=== PATIENT | male | born 1970 | race African-American/Black ===

== ENCOUNTER 2018-07-11 17:36 | Inpatient (IN) | payer OTHER ==
[~2018-07-11] VITALS: Ht 172.7 cm; Wt 70.3 kg
[2018-07-11] MEDS: IPRATROPIUM/ALBUTEROL 0.5-3(2.5)MG/3ML NEB HHN SCH (04:35)
[2018-07-11] MEDS ORDERED: ALPR0.25 PO (17:39)
[2018-07-11] MEDS ORDERED: MORPHINE SULFATE 10 MG/ML CPJ IM ONE (18:00)
[2018-07-11 18:57] LABS: BASOPHILS % 0.2 % (0.0-2.0); EOSINOPHILS % 0.2 % (0.0-5.0); HEMATOCRIT. 45.5 % (42.0-52.0); HEMOGLOBIN. 15.2 g/dL (14.0-18.0); MEAN CORPUSCULAR HEMOGLOBIN 31.3 pg (28.0-32.0); MEAN CORPUSCULAR VOLUME 93.6 fL (80.0-94.0); MEAN PLATELET VOLUME 9.1 fl (7.4-10.4); MONOCYTES % 6.7 % (2.0-8.0); NEUTROPHILS % 83.9 % (40.0-76.0); PLATELET 257 x1000/uL (130-400); RED BLOOD CELL COUNT 4.86 mill/uL (4.7-6.1); RED CELL DISTRIBUTION WIDTH 13.4 % (11.6-14.6)
[2018-07-11 19:04] LABS: PROTHROMBIN TIME 10.4 sec (9.1-11.1)
[2018-07-11 19:07] LABS: CHLORIDE 100 mEq/L (98-107)
[2018-07-11] MEDS ORDERED: MIDAZOLAM HCL 2 MG/2 ML VIAL IV ONE ×2 (19:30→20:30)
[2018-07-11] MEDS ORDERED: MORPHINE SULFATE 4 MG/ML CPJ (NOT FOR IM USE) IV ONE (19:30)
[2018-07-11] MEDS ORDERED: SODIUM CHLORIDE 0.9% 1,000 ML IV ONE (19:30)
[2018-07-11] MEDS ORDERED: MIDAZOLAM HCL 2 MG/2 ML VIAL ONE (20:25)
[2018-07-11] MEDS ORDERED: LIDOCAINE HCL/EPINEPHRINE 1%-EPI 1:100,000 50 ML VIAL INFIL ONE (20:30)
[2018-07-11] MEDS ORDERED: LIDOCAINE HCL/EPINEPHRINE 1%-EPI 1:100,000 30 ML VIAL INFIL ONE (20:30)
[2018-07-11] MEDS ORDERED: IPRATROPIUM/ALBUTEROL 0.5-3(2.5)MG/3ML NEB INH PRN (23:30)
[2018-07-11] MEDS ORDERED: CLONIDINE 0.1MG TABLET PO PRN (23:30)
[2018-07-11] MEDS ORDERED: MAGNESIUM/ALUMINUM HYDROXIDE/SIMETHICONE 30ML UDC PO PRN (23:30)
[2018-07-11] MEDS ORDERED: ACETAMINOPHEN 325MG TABLET PO PRN (23:30)
[2018-07-11] MEDS ORDERED: ALPRAZOLAM 0.5 MG TABLET PO PRN (23:45)
[2018-07-11] MEDS: MORPHINE SULFATE 4 MG/ML CPJ (NOT FOR IM USE) IV PRN (23:59)
[2018-07-12 01:05] VITALS: BP 135/90
[2018-07-12] MEDS: ONDANSETRON HCL 4MG/2ML INJ IV PRN ×2 (02:15→03:19)
[2018-07-12] MEDS: HYDROCODONE/ACETAMINOPHEN 10/325MG TABLET PO PRN ×3 (02:15→20:30)
[2018-07-12 04:24] VITALS: BP 132/96
[2018-07-12] MEDS ORDERED: CARI1.5C MT (05:11)
[2018-07-12] MEDS ORDERED: QUET100T MT (05:30)
[2018-07-12] MEDS: SODIUM CHLORIDE 0.9% INJ 3ML FLUSH IVF SCH ×2 (06:01→21:04)
[2018-07-12] MEDS: MORPHINE SULFATE 4 MG/ML CPJ (NOT FOR IM USE) IV PRN ×2 (06:40→18:44)
[2018-07-12 07:30] LABS: BASOPHILS % 0.2 % (0.0-2.0); EOSINOPHILS % 0.3 % (0.0-5.0); HEMATOCRIT. 40.9 % (42.0-52.0); HEMOGLOBIN. 14.1 g/dL (14.0-18.0); LYMPHOCYTES % 15.8 % (20.0-50.0); MEAN CORPUSCULAR VOLUME 92.7 fL (80.0-94.0); MONOCYTES % 6.6 % (2.0-8.0); NEUTROPHILS % 77.1 % (40.0-76.0); PLATELET 245 x1000/uL (130-400); RED BLOOD CELL COUNT 4.41 mill/uL (4.7-6.1); RED CELL DISTRIBUTION WIDTH 13.3 % (11.6-14.6)
[2018-07-12] MEDS ORDERED: ALPRAZOLAM 0.5 MG TABLET PO PRN (07:45)
[2018-07-12 08:00] VITALS: BP 157/111
[2018-07-12 08:17] LABS: CHLORIDE 103 mEq/L (98-107)
[2018-07-12] MEDS: IPRATROPIUM/ALBUTEROL 0.5-3(2.5)MG/3ML NEB HHN SCH ×4 (08:22→21:22)
[2018-07-12] MEDS: DOCUSATE SODIUM 250MG CAPSULE PO SCH (09:00)
[2018-07-12] MEDS: FAMOTIDINE 20MG TABLET PO SCH ×2 (09:00→20:54)
[2018-07-12] MEDS ORDERED: AMLODIPINE 5MG TABLET PO SCH (09:00)
[2018-07-12] MEDS ORDERED: LORAZEPAM 2MG/ML CPJ IV NR ×2 (11:30→14:15)
[2018-07-12] MEDS ORDERED: HALOPERIDOL LACTATE 5MG/ML VIAL IM NR ×2 (11:30→14:15)
[2018-07-12] MEDS ORDERED: DIPHENHYDRAMINE 50MG/ML VIAL IV NR ×2 (11:30→14:15)
[2018-07-12 20:00] VITALS: BP 137/95
[2018-07-12] MEDS: HALOPERIDOL LACTATE 5MG/ML VIAL IM PRN (20:28)
[2018-07-12] MEDS: NICOTINE 14MG PATCH TD SCH (20:30)
[2018-07-12] MEDS: DIPHENHYDRAMINE 50MG/ML VIAL IV PRN (20:41)
[2018-07-12] MEDS: LORAZEPAM 2MG/ML CPJ IV PRN (21:01)
[2018-07-12] MEDS: ALPRAZOLAM 0.5 MG TABLET PO PRN (21:01)
[2018-07-13] MEDS: IPRATROPIUM/ALBUTEROL 0.5-3(2.5)MG/3ML NEB HHN SCH ×6 (00:13→21:19)
[2018-07-13] MEDS: HYDROMORPHONE HCL/PF 2MG/ML CPJ IV PRN ×3 (02:51→18:16)
[2018-07-13 04:00] VITALS: BP 104/65
[2018-07-13] MEDS: SODIUM CHLORIDE 0.9% INJ 3ML FLUSH IVF SCH ×2 (05:24→13:47)
[2018-07-13] MEDS: HALOPERIDOL LACTATE 5MG/ML VIAL IM PRN ×2 (07:02→15:18)
[2018-07-13] MEDS: DIPHENHYDRAMINE 50MG/ML VIAL IV PRN ×2 (07:02→15:18)
[2018-07-13] MEDS: LORAZEPAM 2MG/ML CPJ IV PRN ×2 (07:02→15:18)
[2018-07-13 08:00] VITALS: BP 120/86
[2018-07-13] MEDS: NICOTINE 14MG PATCH TD SCH (09:00)
[2018-07-13 09:39] LABS: *BENZODIAZEPINES SCREEN URINE PRESUMTIVE POSITIVE (NEGATIVE); METHADONE URINE SCREEN NEGATIVE (NEGATIVE); OPIATES URINE SCREEN PRESUMTIVE POSITIVE (NEGATIVE)
[2018-07-13 09:55] LABS: *AMPHETAMINES SCREEN URINE NEGATIVE (NEGATIVE); *BARBITURATES SCREEN URINE NEGATIVE (NEGATIVE); *COCAINE SCREEN URINE NEGATIVE (NEGATIVE); CANNABINOID URINE SCREEN NEGATIVE (NEGATIVE); PHENCYCLIDINE URINE SCREEN NEGATIVE (NEGATIVE)
[2018-07-13] MEDS: DOCUSATE SODIUM 250MG CAPSULE PO SCH (09:57)
[2018-07-13] MEDS: FAMOTIDINE 20MG TABLET PO SCH (09:57)
[2018-07-13 12:00] VITALS: BP 116/78
[2018-07-13] MEDS: ALPRAZOLAM 0.5 MG TABLET PO PRN ×2 (13:48→22:52)
[2018-07-13] MEDS ORDERED: SENNOSIDES 8.6MG TABLET PO PRN (16:00)
[2018-07-13] MEDS ORDERED: MAGNESIUM HYDROXIDE 400MG/5ML 30ML UDC PO PRN (16:00)
[2018-07-13 16:30] VITALS: BP 124/89
[2018-07-13] MEDS: DOCUSATE SODIUM 100MG CAPSULE PO SCH (18:15)
[2018-07-13 20:00] VITALS: BP 117/74
[2018-07-14] VITALS: BP 133/82
[2018-07-14] MEDS: HYDROMORPHONE HCL/PF 2MG/ML CPJ IV PRN ×4 (00:06→22:46)
[2018-07-14] MEDS: FAMOTIDINE 20MG TABLET PO SCH ×3 (00:06→20:27)
[2018-07-14] MEDS: SODIUM CHLORIDE 0.9% INJ 3ML FLUSH IVF SCH ×3 (00:07→16:15)
[2018-07-14] MEDS: IPRATROPIUM/ALBUTEROL 0.5-3(2.5)MG/3ML NEB HHN SCH ×6 (01:00→20:43)
[2018-07-14 04:00] VITALS: BP 141/85
[2018-07-14] MEDS: HYDROCODONE/ACETAMINOPHEN 10/325MG TABLET PO PRN (04:31)
[2018-07-14] MEDS: DIPHENHYDRAMINE 50MG/ML VIAL IV PRN ×3 (05:03→18:05)
[2018-07-14] MEDS: HALOPERIDOL LACTATE 5MG/ML VIAL IM PRN ×3 (05:03→18:05)
[2018-07-14 08:00] VITALS: BP 125/82
[2018-07-14] MEDS: NICOTINE 14MG PATCH TD SCH (08:21)
[2018-07-14] MEDS: DOCUSATE SODIUM 100MG CAPSULE PO SCH ×2 (09:00→18:07)
[2018-07-14] MEDS: DOCUSATE SODIUM 250MG CAPSULE PO SCH (09:12)
[2018-07-14] MEDS: LORAZEPAM 2MG/ML CPJ IV PRN ×2 (11:27→18:36)
[2018-07-14 12:00] VITALS: BP 113/73
[2018-07-14 16:00] VITALS: BP 137/89
[2018-07-14 20:00] VITALS: BP 121/75
[2018-07-15] VITALS: BP 167/89
[2018-07-15] MEDS: IPRATROPIUM/ALBUTEROL 0.5-3(2.5)MG/3ML NEB HHN SCH ×7 (00:40→23:30)
[2018-07-15] MEDS: LORAZEPAM 2MG/ML CPJ IV PRN ×4 (00:51→21:42)
[2018-07-15] MEDS: HALOPERIDOL LACTATE 5MG/ML VIAL IM PRN ×4 (00:51→21:43)
[2018-07-15] MEDS: DIPHENHYDRAMINE 50MG/ML VIAL IV PRN ×4 (00:51→21:43)
[2018-07-15] MEDS: ALPRAZOLAM 0.5 MG TABLET PO PRN ×3 (02:34→22:46)
[2018-07-15 04:00] VITALS: BP 125/81
[2018-07-15] MEDS: HYDROMORPHONE HCL/PF 2MG/ML CPJ IV PRN ×3 (05:08→19:59)
[2018-07-15] MEDS: SODIUM CHLORIDE 0.9% INJ 3ML FLUSH IVF SCH ×3 (05:12→21:42)
[2018-07-15 08:00] VITALS: BP 119/75
[2018-07-15] MEDS: NICOTINE 14MG PATCH TD SCH (09:00)
[2018-07-15] MEDS: DOCUSATE SODIUM 100MG CAPSULE PO SCH ×2 (09:00→16:55)
[2018-07-15] MEDS: FAMOTIDINE 20MG TABLET PO SCH ×2 (09:59→20:03)
[2018-07-15] MEDS: DOCUSATE SODIUM 250MG CAPSULE PO SCH (09:59)
[2018-07-15] MEDS ORDERED: TEMAZEPAM 15MG CAPSULE PO PRN (14:30)
[2018-07-15 16:00] VITALS: BP 111/73
[2018-07-15 20:00] VITALS: BP 107/72
[2018-07-16] VITALS: BP 110/83
[2018-07-16] MEDS ORDERED: HALOPERIDOL LACTATE 5MG/ML VIAL IM NR (01:00)
[2018-07-16] MEDS ORDERED: LORAZEPAM 2MG/ML CPJ IV NR (01:00)
[2018-07-16] MEDS ORDERED: DIPHENHYDRAMINE 50MG/ML VIAL IV NR (01:00)
[2018-07-16] MEDS: HYDROMORPHONE HCL/PF 2MG/ML CPJ IV PRN ×2 (03:25→12:02)
[2018-07-16] MEDS: IPRATROPIUM/ALBUTEROL 0.5-3(2.5)MG/3ML NEB HHN SCH ×3 (03:30→12:36)
[2018-07-16 04:08] VITALS: BP 133/84
[2018-07-16] MEDS: DIPHENHYDRAMINE 50MG/ML VIAL IV PRN (06:30)
[2018-07-16] MEDS: LORAZEPAM 2MG/ML CPJ IV PRN (06:30)
[2018-07-16] MEDS: HALOPERIDOL LACTATE 5MG/ML VIAL IM PRN (06:30)
[2018-07-16] MEDS: SODIUM CHLORIDE 0.9% INJ 3ML FLUSH IVF SCH (06:30)
[2018-07-16 08:00] VITALS: BP 118/77
[2018-07-16] MEDS: DOCUSATE SODIUM 100MG CAPSULE PO SCH (09:00)
[2018-07-16] MEDS: NICOTINE 14MG PATCH TD SCH (09:00)
[2018-07-16] MEDS: FAMOTIDINE 20MG TABLET PO SCH (09:00)
[2018-07-16 12:00] VITALS: BP 140/94
[2018-07-16 12:02] VITALS: BP 118/77
== END 2018-07-16 12:45 | disposition left against medical advice (07) | DRG 200 ==
LOC: ER 17:36 → 5WST 21:25 → EDBEDREQTM 21:27 → EDBEDREQ 21:27 → ENRESERV 21:44
PROVIDERS: ADMIT Internal Medicine; ATTEND Internal Medicine
PROC: 0W9B30Z Drainage of Left Pleural Cavity with Drainage Device, Percutaneous Approach (ICD-10-PCS; principal; 2018-07-11)
DX: S27.0XXA Traumatic pneumothorax, initial encounter (principal); S22.49XA Multiple fractures of ribs, unspecified side, initial encounter for closed fracture; R65.10 Systemic inflammatory response syndrome (SIRS) of non-infectious origin without acute organ dysfunction; T79.7XXA Traumatic subcutaneous emphysema, initial encounter; F17.200 Nicotine dependence, unspecified, uncomplicated; F25.9 Schizoaffective disorder, unspecified; F99 Mental disorder, not otherwise specified; Z53.21 Procedure and treatment not carried out due to patient leaving prior to being seen by health care provider; X58.XXXA Exposure to other specified factors, initial encounter; I10 Essential (primary) hypertension; W19.XXXA Unspecified fall, initial encounter; Y93.9 Activity, unspecified; Y92.89 Other specified places as the place of occurrence of the external cause; Y99.8 Other external cause status; Z88.8 Allergy status to other drugs, medicaments and biological substances; Z79.899 Other long term (current) drug therapy; Y93.89 Activity, other specified
CPT/HCPCS: 36415; 71045; 80048; 80305; 94640; 96361; 96372; 96374; 96375; 96376; 99285; C1893; J1170; J1200; J1630; J2060; J2250; J2270; J2405; J3490; J7030; J7620